=== PATIENT | male | born 1960 | race Caucasian/White ===

== ENCOUNTER 2017-03-26 05:33 | Day surgery (SDC) | payer OTHER ==
[~2017-03-26] VITALS: Ht 182.9 cm; Wt 77.1 kg
--- NOTE | ~2017-03-26 | OP ---
PATIENT NAME: LUCIANO IRAHETA MEDICAL RECORD: [id number] :64 LOCATION:.[facility] ADMISSION DATE: SURGEON: LUCIANO SULLIVAN DATE OF OPERATION: 03/26/2017 SURGEON: Luciano Sullivan DPM. PREOPERATIVE DIAGNOSES: 1. Retrocalcaneal exostosis, left foot. 2. Achilles tendonitis Left foot. POSTOPERATIVE DIAGNOSES: 1. Retrocalcaneal exostosis, left foot. 2. Achilles tendonitis Left foot. PROCEDURE: 1. Resection of prominent retrocalcaneal exostosis, left foot. 2. Debridement of Achilles tendon, left foot. ANESTHESIA: General. HEMOSTASIS: Pneumatic calf tourniquet inflated to 250 mmHg. ESTIMATED BLOOD LOSS: Minimal. MATERIALS: One 2.5 mm [employer] anchor, 3-0 Vicryl, 4-0 nylon. INJECTABLES: 20 cc of 0.5% bupivacaine plain. The patient has longstanding history of pain associated with both the bony prominence on the posterior aspect of the left heel, as well as the Achilles tendonitis. He failed to improve with both physical therapy and boot immobilization. I discussed with him the risks and benefits of the procedure. Complications were discussed. His questions were answered. He was appropriately consented for the above-mentioned procedures. DESCRIPTION OF PROCEDURE: The patient was brought in the operating room and placed in the operating table in a prone position. A timeout was called with Dr. Sullivan, who identified the patient, the surgical site, and surgery to be performed. Once appropriate anesthesia was obtained, the foot was prepped and draped in the usual aseptic manner. The pneumatic calf tourniquet was inflated to 250 mmHg on the well-padded left calf. Attention was directed to the posterior aspect of the left heel where an 8 cm linear incision was made. This incision was carried deep to soft tissue with care being taken to retract all vital neurovascular structures. All bleeders were cauterized along the way. The Achilles tendon was then split midline and reflected from the posterior aspect of the calcaneus. The Achilles tendon was inspected and found to have copious inflamed tissue, as well as some devitalized tendon. All of the devitalized nonviable tissue was sharply dissected free with a 15 blade. Attention was then directed to the posterior aspect of the heel itself. Utilizing a osteotome and mallet, all hypertrophied bone was resected. All rough bone edges and sharp bone edges were smoothed with a rasp and rongeur. OPERATIVE REPORT [id number] LUCIANO IRAHETA The Achilles tendon was then inspected for any residual non viable tendon tissue and none was noted. The heel bone was noted to be appropriately reduced in size. The surgical site was then irrigated with copious amounts of normal sterile saline via bulb syringe. Next, utilizing manufacture's recommended technique, one 2.5 mm anchor was placed in the calcaneus and the Achilles tendon was sutured back in placed to the posterior aspect of the calcaneus. The subQ was then reapproximated and coapted utilizing 3-0 Vicryl. The skin was then reapproximated and coapted using 4-0 nylon. Dressing consisting of Xeroform, 4 x 4's, Kerlix, and the posterior splint was applied to the left foot. The pneumatic calf tourniquet was deflated and capillary refill time is immediate to all digits of the left foot. The patient will be discharged home with instructions to ice and elevate the left foot. He has a knee scooter to be completely nonweightbearing left foot. He will follow up with me next week in the office at which time we will likely place him in a boot. He tolerated the procedure and anesthesia well and there were no complications. He has my cell phone number for any after difficulties and we will follow up with him next week. TRANSINT:[id number] Voice Confirmation ID: [id number] DOCUMENT ID: [id number] LUCIANO SULLIVAN CC: [id number] DICTATION DATE: 03/27/171653 ACID REMOVER: 03/27/17 1648 [facility] 03/26/17 [facility] [address] [place] [address]
[2017-03-26 09:10] VITALS: BP 149/81; Ht 182.9 cm; Wt 77.1 kg
--- NOTE | 2017-03-26 21:11 | NUR ---
1615--IV DC'D, PT UP TO DRESS. MCKENNA VILLARREAL 1630--DISCHARGE INSTRUCTIONS GIVEN, PT VERBALIZES UNDERSTANDING. PT OFF UNIT VIA WC. MCKENNA VILLARREAL
== END 2017-03-26 16:30 | disposition home or self-care (01) ==
LOC: D.OPS 05:33 → D.PAN 11:30 → D.OPS 11:30
DX: M77.52 Other enthesopathy of left foot and ankle (principal); K21.9 Gastro-esophageal reflux disease without esophagitis; Z01.812 Encounter for preprocedural laboratory examination